=== PATIENT | male | born 1990 | race Two or more races ===

== ENCOUNTER 2020-01-09 11:19 | Emergency (ER) | payer OTHER ==
[~2020-01-09] VITALS: Ht 170.2 cm; Wt 68.6 kg
--- NOTE | 2020-01-09 11:59 | NUR ---
PT PRESENTS TO ED WITH SWELLING TO LEFT SIDE OF NECK STARTING LAST THURSDAY, X7 DAYS AGO. PT REPORTS PAINFUL TO SWALLOW AND TENDER TO TOUCH. DENIES DIFFICULTY BREATHING. PT WAS BEING TITRATED TO 100 MG LAMICTAL AND TAKEN OFF BY PSYCHIATRIST FOR FEAR THIS WAS CAUSING PT'S SWELLING. PT SITTING UP IN BED, CHANGED INTO GOWN. NO WOB NOTED, NAD NOTED. AWAITING ERMD EVAL.
[2020-01-09] MEDS ORDERED: CEPH-368 PO (12:02)
--- NOTE | 2020-01-09 12:20 | NUR ---
report received from lauren monterroso.
[2020-01-09 13:00] LABS: BASOPHILS # (AUTO) 0.06 x10^3/uL (0-0.1); BASOPHILS % (AUTO) 1 % (0-1); EOSINOPHILS # (AUTO) 0.02 x10^3/uL (0-0.4); EOSINOPHILS % (AUTO) 0 % (1-7); LYMPHOCYTES % (AUTO) 21 % (22-44); MD NO; MEAN CORPUSCULAR HEMOGLOBIN 26.2 pg (27.5-34.5); MEAN CORPUSCULAR HGB CONC 32.4 g/dL (33.2-36.2); MEAN CORPUSCULAR VOLUME 80.8 fL (81-97); MEAN PLATELET VOLUME 9.2 fL (7.4-10.4); MONOCYTES # (AUTO) 1.33 x10^3/uL (0.2-0.8); MONOCYTES % (AUTO) 15 % (2-9); NEUTROPHILS # (AUTO) 5.88 x10^3/uL (1.8-6.8); NEUTROPHILS % (AUTO) 64 % (42-75); PLATELET COUNT 206 x10^3/uL (130-400); RED BLOOD COUNT 5.76 x10^6/uL (4.38-5.82); RED CELL DISTRIBUTION WIDTH 13.3 % (9.4-14.8)
[2020-01-09] MEDS ORDERED: SODIUM CHLORIDE FLUSH 10ML SYR IVF ONE (13:00)
--- NOTE | 2020-01-09 13:02 | NUR ---
piv est on r ac with no complications. pt tolerated well.
[2020-01-09 13:11] LABS: ALBUMIN 3.8 g/dL (3.4-5.0); ANION GAP 8 mmol/L (5-15); CALCIUM 8.9 mg/dL (8.5-10.1); CHLORIDE 106 mmol/L (98-107)
[2020-01-09 13:18] LABS: ALANINE AMINOTRANSFERASE 48 U/L (12-78); ALKALINE PHOSPHATASE 83 U/L (45-117); BILIRUBIN,TOTAL 0.6 mg/dL (0.2-1.0); TOTAL PROTEIN 8.2 g/dL (6.4-8.2)
--- NOTE | 2020-01-09 13:20 | NUR ---
this rn paged ct but ct is busy and is not able to take this pt at this time.
--- NOTE | 2020-01-09 14:15 | NUR ---
pt resting in [facility]. pt's aox4. resps even and unlabored. bp/spo2 monitors in place. call light within reach. pt denies any needs or concerns at this time.
--- NOTE | 2020-01-09 14:34 | NUR ---
ct paged. should be next per ct.
--- NOTE | 2020-01-09 15:30 | NUR ---
TASK RN NOTE: PT UP FOR RECHECK.
--- NOTE | 2020-01-09 16:11 | NUR ---
PT SLEEPING IN [facility]. RESPS EVEN AND UNLABORED. BP/SPO2 MONITORS IN PLACE. CALL LIGHT WITHIN REACH.
[2020-01-09] MEDS ORDERED: OMNIPAQUE 350 MG/ML, 100ML BOTTLE ONE (16:16)
--- NOTE | 2020-01-09 17:04 | NUR ---
pt resting in [facility]. resps even and unlabored. awaiting dc papers.
[2020-01-09 17:21] VITALS: BP 122/69
--- NOTE | 2020-01-09 17:37 | NUR ---
Patient given discharge instructions and they have confirmed that they understand the instructions. Patient ambulatory with steady gait.
== END 2020-01-09 17:38 | disposition home or self-care (01) ==
LOC: ED 12:28
DX: L04.0 Acute lymphadenitis of face, head and neck (principal)
CPT/HCPCS: 36415; 70491; 80053; 85025; 86308; 99285; Q9967

== ENCOUNTER → 2020-02-10 | Outpatient (CLI) | payer OTHER ==
[~2020-02-10] MED LIST: CEPH-368 PO; LIDOCAINE 1%, 10ML ONE
== END | disposition home or self-care (01) ==
LOC: RAD 12:44
PROVIDERS: ATTEND Otolaryngology
DX: R59.1 Generalized enlarged lymph nodes (principal); Z79.2 Long term (current) use of antibiotics
CPT/HCPCS: 10005; 88172; 88173; J3490